=== PATIENT | female | born 1995 ===

== ENCOUNTER 2017-10-09 20:21 | Emergency (ER) | payer SELFPAY ==
--- NOTE | 2017-10-09 20:33 | C.PDOC ---
History Of Present Illness 22 yr old female presents to the ER with complaints of depression. Patient states she had a argument with her girlfriend and family, had suicidal ideation afterwards. Patient states she wanted to drink Clorox but did not. At present time, patient denies SI, HI, or any other physical complaints. No alcohol or drug use. 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) Suicide/Self Injury Attempted (Context): None Recent travel outside of the [place]: No Past Medical History Reviewed: Historical Data, Nursing Documentation, Vital Signs Vital Signs: Last Vital Signs Temp 97.7 F 10/09/17 20:24 Pulse 105 H 10/09/17 20:24 Resp 20 10/09/17 20:24 BP 124/88 10/09/17 20:24 Pulse Ox 100 10/09/17 21:03 Family History: States: No Known Family Hx - Social History Hx Alcohol Use: Yes Hx Substance Use: No - Immunization History Hx Tetanus Toxoid Vaccination: No Hx Influenza Vaccination: No Hx Pneumococcal Vaccination: No Review Of Systems Except As Marked, All Systems Reviewed And Found Negative. Constitutional: Negative for: Fever Gastrointestinal: Negative for: Nausea, Vomiting Psych: Positive for: Depression, Suicidal ideation (had inital thoughts of suicide but none at the moment) Physical Exam - Physical Exam Appears: Non-toxic, No Acute Distress Skin: Warm, Dry Oral Mucosa: Moist Respiratory: No Rales, No Rhonchi, No Stridor, No Wheezing Extremity: Normal ROM, No Swelling Neurological/Psych: Oriented x3, Normal Speech ED Course And Treatment - Laboratory Results Result Diagrams: 10/09/17 20:44 10/09/17 20:44 O2 Sat by Pulse Oximetry: 100 (RA) Pulse Ox Interpretation: Normal Progress Note: pt was cleared for discharge by crisis. Again , pt denies any suicidal or homicidal ideation Reevaluation Time: 21:46 Reassessment Condition: Improved Medical Decision Making Medical Decision Making: PLAN: * Alcohol Serum * Drug Screen * Labs * HCG * Urinalysis Disposition Counseled Patient/Family Regarding: Studies Performed, Diagnosis, Need For Followup - Disposition Referrals: Community Mental Health [Outside] Disposition: HOME/ ROUTINE Disposition Time: 20:33 Condition: FAIR Instructions: Polysubstance Abuse (DC) Forms: [facility] (E[place]ian) - Clinical Impression Clinical Impression: Polysubstance abuse - Scribe Statement The provider has reviewed the documentation as recorded by the Adairibe Keturah Weathers Provider Attestation: All medical record entries made by the Scribe were at my direction and personally dictated by me. I have reviewed the chart and agree that the record accurately reflects my personal performance of the history, physical exam, medical decision making, and the department course for this patient. I have also personally directed, reviewed, and agree with the discharge instructions and disposition.
[2017-10-09 20:37] VITALS: RESP 20; TEMP 97.7; O2SAT 100
[2017-10-09 20:52] LABS: BASO # 0.1 K/uL (0.0-0.2); BASO % 0.5 % (0.0-2.0); EOS # 0.1 K/uL (0.0-0.7); EOS % 1.1 % (0.0-4.0); LYMPH # 2.7 K/uL (1.0-4.3); LYMPH % 24.8 % (20.0-40.0); MEAN CORPUSCULAR HEMOGLOBIN 28.3 pg (27.0-31.0); MEAN PLATELET VOLUME 7.8 fL (7.2-11.7); MONO # 1.4 K/uL (0.0-0.8); MONO % 12.7 % (0.0-10.0); NEUT # 6.6 K/uL (1.8-7.0); NEUT % 60.9 % (50.0-75.0); RBC 5.3 Mil/uL (3.80-5.20); RED CELL DISTRIBUTION WIDTH 15.4 % (11.5-14.5); WHITE BLOOD COUNT 10.8 K/uL (4.8-10.8)
[2017-10-09 20:55] LABS: SQUAMOUS EPITHIAL 3 /hpf (0-5); URINE BACTERIA FEW (<OCC); URINE BILIRUBIN NEGATIVE (NEGATIVE); URINE BLOOD NEGATIVE (NEGATIVE); URINE CLARITY Hazy (Clear); URINE COLOR Amber (YELLOW); URINE GLUCOSE (UA) NORMAL (Normal); URINE LEUKOCYTE ESTERASE NEG Leu/uL (Negative); URINE NITRATE NEGATIVE (NEGATIVE); URINE PROTEIN 1+ mg/dL (NEGATIVE)
[2017-10-09 20:57] LABS: HCG,QUALITATIVE URINE NEGATIVE (NEGATIVE)
[2017-10-09 21:09] LABS: BARBITURATES, UR NEGATIVE (NEGATIVE); BENZODIAZEPINES, UR NEGATIVE (NEGATIVE); OPIATES, UR NEGATIVE (NEGATIVE); PHENCYCLIDINE, UR NEGATIVE (NEGATIVE)
[2017-10-09 21:11] LABS: ALB/GLOB RATIO 1.2 (1.0-2.1); ALBUMIN 4.9 g/dL (3.5-5.0); ALT/SGPT 35 U/L (9-52); AST/SGOT 33 U/L (14-36); BLOOD UREA NITROGEN 9 mg/dL (7-17); CALCIUM 9.7 mg/dl (8.6-10.4); GFR AFRICAN-AMERICAN > 60; GFR NON-AFRICAN AMERICAN > 60
[2017-10-09 22:01] VITALS: BP 112/59; PULSE 82
== END 2017-10-09 22:00 | disposition home or self-care (01) ==
LOC: C.ER 20:21 → EEVIPCON 20:21 → C.ER 22:00
DX: F19.10 Other psychoactive substance abuse, uncomplicated (principal)
CPT/HCPCS: 80053; 81001; 84703; 85025; 99283; G0480